=== PATIENT | female | born 1980 | race Caucasian/White ===

== ENCOUNTER 2017-01-13 21:30 | Emergency (ER) | payer SELFPAY ==
[~2017-01-13] VITALS: Ht 162.6 cm; Wt 67.3 kg
[~2017-01-13 21:30] MED LIST: ANAPROX DS550 MG PO; CEPHALEXIN500 M1 PO; IRON50 MG PO; LORTAB 5/500 501 TAB PO; MULTIPLE VITAMI1 TA2 PO; NAPROSYN500 MG PO; NO HOME MEDICATIONS; NORCO 325 MG-51 TAB PO; NORCO 325 MG-7.1 TAB PO; PERCOCET 325 MG1 TA2 PO; PROAIR HFA0.09 MG/AC IH; PROVENTIL0.09 MG/A1 IH; ULTRAM 50MG TAB50 MG PO; ZITHROMAX 250M250 MG PO; ZITHROMAX Z PA250 MG PO
[2017-01-13 21:31] VITALS: BP 125/40; TEMP 97.1
[2017-01-13] MEDS ORDERED: ULTRAM 50MG TAB50 MG PO (22:05)
[2017-01-13] MEDS ORDERED: NORCO 325 MG-51 TAB PO (22:05)
[2017-01-13 22:30] VITALS: PULSE 80
== END 2017-01-13 22:30 | disposition home or self-care (01) ==
LOC: COL.ER 21:30
DX: K08.89 Other specified disorders of teeth and supporting structures (principal); K03.81 Cracked tooth

== ENCOUNTER 2017-05-09 19:14 | Emergency (ER) | payer SELFPAY ==
[~2017-05-09] VITALS: Ht 162.6 cm; Wt 71.4 kg
[2017-05-09 19:18] VITALS: BP 137/65; TEMP 98.5
[2017-05-09 19:51] LABS: PH 5 (5-8); URINE APPEARANCE Clear; URINE BACTERIA None Seen /hpf; URINE BILIRUBIN Negative (NEGATIVE); URINE BLOOD Negative (NEGATIVE); URINE COLOR Yellow; URINE GLUCOSE Negative (NEGATIVE); URINE KETONE Negative (NEGATIVE); URINE RBC 0-2 /hpf; URINE UROBILINOGEN Negative (NEGATIVE); URINE WBC 0-2 /hpf
[2017-05-09 19:56] LABS: BASO # 0.1 (0.0-0.2); BASO % 0.8 % (0.0-2.0); EOS # 0.3 (0.0-0.7); EOS % 2.7 % (0-4.0); GRAN # 5.7 (1.4-6.5); HEMATOCRIT 42.3 % (37.0-47.0); HEMOGLOBIN 14.5 g/dl (12.5-16.0); LYMPH # 3.1 (1.2-3.4); LYMPH % 31.4 % (20.0-51.0); MEAN CELL VOLUME 88 fl (80.0-100.0); MEAN CORPUSCULAR HEMOGLOBIN 30 pg (27.0-31.0); MEAN CORPUSCULAR HGB CONC 34 g/dl (33.0-37.0); MEAN PLATELET VOLUME 10.8 fl (7.4-10.4); MONO # 0.7 (0.1-0.6); MONO % 6.9 % (1.7-9.3); PLATELET COUNT 275 K/mm3 (130-400); RED BLOOD COUNT 4.81 M/mm3 (4.10-5.30); REDCELL DISTRIBUTION WIDTH-CV 12.8 % (11.5-14.5); WHITE BLOOD COUNT 9.8 K/mm3 (4.8-10.8)
[2017-05-09 20:05] LABS: ADJUSTED CALCIUM 9.5 mg/dL (8.4-10.2); ALBUMIN 4.4 gm/dL (3.5-5.0); BILIRUBIN,TOTAL 0.4 mg/dL (0.0-1.0); CALCIUM 9.8 mg/dL (8.4-10.2); CREATININE, serum 0.61 mg/dL (0.52-1.25); POTASSIUM 3.9 mmol/L (3.4-5.0); TOTAL PROTEIN 7.3 gm/dL (6.4-8.2)
[2017-05-09] MEDS ORDERED: FLEXERIL 1010 MG/TAB PO (20:16)
[2017-05-09 20:30] VITALS: PULSE 94
== END 2017-05-09 20:31 | disposition home or self-care (01) ==
LOC: COL.ER 19:14
PROVIDERS: Emergency Medicine
DX: M54.5 Low back pain (principal); F17.200 Nicotine dependence, unspecified, uncomplicated; Z85.41 Personal history of malignant neoplasm of cervix uteri; Z87.59 Personal history of other complications of pregnancy, childbirth and the puerperium
CPT/HCPCS: J1885; J2405; J7030

== ENCOUNTER 2017-12-10 16:30 | Emergency (ER) | payer SELFPAY ==
[~2017-12-10] VITALS: Ht 162.6 cm; Wt 65.0 kg
[~2017-12-10 16:30] MED LIST changes: +FLEXERIL 1010 MG/TAB PO; +ILOTYCIN5 MG/GM OD; +MULTIVITAMIN FO1 CAP PO
[2017-12-10 18:46] VITALS: BP 118/72; PULSE 102; TEMP 98.5
== END 2017-12-10 19:10 | disposition home or self-care (01) ==
LOC: COL.ER 16:30
DX: J11.1 Influenza due to unidentified influenza virus with other respiratory manifestations (principal); J45.909 Unspecified asthma, uncomplicated; F31.9 Bipolar disorder, unspecified; F17.210 Nicotine dependence, cigarettes, uncomplicated

== ENCOUNTER 2018-03-07 13:57 | Emergency (ER) | payer SELFPAY ==
[~2018-03-07] VITALS: Ht 162.6 cm; Wt 62.7 kg
[2018-03-07 14:11] VITALS: BP 114/73; TEMP 98.1
[2018-03-07 16:53] VITALS: PULSE 85
== END 2018-03-07 16:53 | disposition home or self-care (01) ==
LOC: COL.ER 13:57
DX: Z32.02 Encounter for pregnancy test, result negative (principal); F17.210 Nicotine dependence, cigarettes, uncomplicated; Z98.51 Tubal ligation status; Z98.890 Other specified postprocedural states; Z88.6 Allergy status to analgesic agent

== ENCOUNTER 2018-08-08 21:56 | Emergency (ER) | payer SELFPAY ==
[~2018-08-08] VITALS: Ht 162.6 cm; Wt 65.0 kg
[2018-08-08 22:06] VITALS: BP 132/85
[2018-08-08] MEDS ORDERED: ZITHROMAX Z PA250 MG PO (22:25)
[2018-08-08] MEDS ORDERED: PREDNISONE20 MG PO (22:25)
[2018-08-08 22:36] VITALS: PULSE 102; TEMP 98.2
== END 2018-08-08 22:36 | disposition home or self-care (01) ==
LOC: COL.ER 21:56
DX: J20.9 Acute bronchitis, unspecified (principal); J45.909 Unspecified asthma, uncomplicated; F17.210 Nicotine dependence, cigarettes, uncomplicated; Z85.41 Personal history of malignant neoplasm of cervix uteri

== ENCOUNTER 2018-09-26 14:34 | Emergency (ER) | payer SELFPAY ==
[~2018-09-26] VITALS: Ht 162.6 cm; Wt 61.8 kg
[~2018-09-26 14:34] MED LIST changes: +PREDNISONE20 MG PO
[2018-09-26 14:39] VITALS: TEMP 98
[2018-09-26] MEDS ORDERED: BACTRIM DS 8001 TAB PO (15:24)
[2018-09-26 15:29] VITALS: BP 124/83; PULSE 97
== END 2018-09-26 15:29 | disposition home or self-care (01) ==
LOC: COL.ER 14:34
DX: H60.11 Cellulitis of right external ear (principal); F17.210 Nicotine dependence, cigarettes, uncomplicated

== ENCOUNTER 2019-03-24 17:43 | Emergency (ER) | payer SELFPAY ==
[~2019-03-24] VITALS: Ht 162.6 cm; Wt 65.0 kg
[~2019-03-24 17:43] MED LIST changes: +BACTRIM DS 8001 TAB PO
[2019-03-24] MEDS ORDERED: NATURAL IRON65 MG PO (18:03)
[2019-03-24] MEDS ORDERED: CEFTIN500 MG PO (18:16)
[2019-03-24 18:37] VITALS: BP 125/89; PULSE 89; TEMP 98
== END 2019-03-24 18:39 | disposition home or self-care (01) ==
LOC: COL.ER 17:43
DX: H65.91 Unspecified nonsuppurative otitis media, right ear (principal); J02.9 Acute pharyngitis, unspecified; Z98.51 Tubal ligation status

== ENCOUNTER 2019-04-08 19:56 | Emergency (ER) | payer SELFPAY ==
[~2019-04-08 19:56] MED LIST changes: +CEFTIN500 MG PO; +NATURAL IRON65 MG PO
[2019-04-08 20:03] VITALS: TEMP 98.4
[2019-04-08 20:28] VITALS: BP 110/68; PULSE 81
== END 2019-04-08 20:32 | disposition home or self-care (01) ==
LOC: COL.ER 19:56
DX: Z71.1 Person with feared health complaint in whom no diagnosis is made (principal)

== ENCOUNTER 2021-04-15 19:05 | Emergency (ER) | payer SELFPAY ==
[~2021-04-15] VITALS: Ht 162.6 cm; Wt 67.3 kg
[2021-04-15 20:26] LABS: BASO % 0.5 % (0.0-2.0); EOS % 1.1 % (0-4.0); GRAN # 2.2 (1.4-6.5); GRAN % 58.2 % (42.2-75.2); HEMATOCRIT 48.5 % (37.0-47.0); HEMOGLOBIN 16.4 g/dl (12.5-16.0); LYMPH # 1.2 (1.2-3.4); MEAN CELL VOLUME 87 fl (80.0-100.0); MEAN CORPUSCULAR HEMOGLOBIN 29 pg (27.0-31.0); MEAN CORPUSCULAR HGB CONC 34 g/dl (33.0-37.0); MEAN PLATELET VOLUME 11.4 fl (7.4-10.4); MONO # 0.3 (0.1-0.6); MONO % 7.9 % (1.7-9.3); PLATELET COUNT 187 K/mm3 (130-400); REDCELL DISTRIBUTION WIDTH-CV 13.1 % (11.5-14.5)
[2021-04-15 20:42] LABS: ALBUMIN 4.7 gm/dL (3.5-5.0); BILIRUBIN,TOTAL 1.3 mg/dL (0.0-1.0); CREATININE, serum 0.59 (0.52-1.25); POTASSIUM 5.1 mmol/L (3.4-5.0); TOTAL PROTEIN 8.7 gm/dL (6.4-8.2)
[2021-04-15] MEDS ORDERED: ZOFRAN ODT4 MG PO (20:58)
[2021-04-15 21:15] VITALS: BP 119/70; PULSE 79; TEMP 98.7
== END 2021-04-15 21:15 | disposition home or self-care (01) ==
LOC: COL.ER 19:05
PROVIDERS: Emergency Medicine
DX: U07.1 COVID-19 (principal); D72.819 Decreased white blood cell count, unspecified
CPT/HCPCS: J2405; J7120

== ENCOUNTER 2021-11-21 19:35 | Emergency (ER) | payer SELFPAY ==
[~2021-11-21] VITALS: Ht 162.6 cm; Wt 59.1 kg
[~2021-11-21 19:35] MED LIST changes: +ZOFRAN ODT4 MG PO
[2021-11-21 19:48] VITALS: TEMP 97.2
[2021-11-21 21:38] VITALS: BP 130/78; PULSE 76
== END 2021-11-21 21:38 | disposition home or self-care (01) ==
LOC: COL.ER 19:35
DX: U07.1 COVID-19 (principal); J12.82 Pneumonia due to coronavirus disease 2019; Z91.040 Latex allergy status; Z73.0 Burn-out

== ENCOUNTER 2023-01-02 11:27 | Emergency (ER) | payer SELFPAY ==
[~2023-01-02] VITALS: Ht 162.6 cm; Wt 75.5 kg
[2023-01-02 11:38] VITALS: TEMP 97.7
[2023-01-02 12:45] LABS: ALANINE AMINOTRANSFERASE 11 U/L (0-55); ALBUMIN 4.1 gm/dL (3.5-5.0); ALKALINE PHOSPHATASE 75 U/L (40-150); ANION GAP 10 mmol/L (7-16); AST,SGOT 14 U/L (5-34); BILIRUBIN,TOTAL 0.7 mg/dL (0.2-1.2); BLOOD UREA NITROGEN 11 mg/dL (7-19); CALCIUM 9.1 mg/dL (8.4-10.2); CARBON DIOXIDE 23 mmol/L (22-29); CHLORIDE 106 mmol/L (98-107); CREATININE, serum 0.78 mg/dL (0.57-1.11); GLUCOSE 94 mg/dL (70-99); LIPASE 26 U/L (8-78); POTASSIUM 3.9 mmol/L (3.5-4.5); SODIUM 139 mmol/L (136-145); TOTAL PROTEIN 7.6 gm/dL (6.2-8.1)
[2023-01-02 12:47] LABS: BASO # 0.1 K/mm3 (0.0-0.2); BASO % 0.5 % (0.0-2.0); EOS # 0.2 K/mm3 (0.0-0.7); EOS % 2.2 % (0.0-4.0); GRAN # 8.7 K/mm3 (1.4-6.5); GRAN % 81.2 % (42.2-75.2); HEMATOCRIT 41.2 % (37.0-47.0); HEMOGLOBIN 13.6 g/dl (12.5-16.0); LYMPH # 1.1 K/mm3 (1.2-3.4); LYMPH % 10.1 % (20.0-51.0); MEAN CELL VOLUME 87 fl (80.0-100.0); MEAN CORPUSCULAR HEMOGLOBIN 29 pg (27-31); MEAN CORPUSCULAR HGB CONC 33 g/dl (33.0-37.0); MEAN PLATELET VOLUME 10.5 fl (7.4-10.4); MONO # 0.6 K/mm3 (0.1-0.6); MONO % 5.5 % (1.7-9.3); PLATELET COUNT 339 K/mm3 (130-400); RED BLOOD COUNT 4.75 M/mm3 (4.10-5.30); REDCELL DISTRIBUTION WIDTH-CV 13.2 % (11.5-14.5)
[2023-01-02 13:03] LABS: TROPONIN-I < 0.010 ng/mL (0.00-0.033)
[2023-01-02 14:24] VITALS: BP 132/76; PULSE 83
[2023-01-02 15:05] LABS: COLLECTION METHOD CLEAN CATCH
[2023-01-02 15:24] LABS: MUCOUS Present (NOT PRESENT); URINE BACTERIA None Seen /hpf (NONE SEEN); URINE RBC None Seen /hpf (0-2)
[2023-01-02 15:40] LABS: URINE APPEARANCE Turbid (CLEAR/HAZY); URINE COLOR Yellow (YELLOW)
[2023-01-02 15:41] LABS: URINE BLOOD Negative (NEGATIVE); URINE GLUCOSE Negative (NEGATIVE); URINE KETONE Negative (NEGATIVE); URINE NITRATE Negative (NEGATIVE); URINE PROTEIN(semi-quant) Negative (NEGATIVE); URINE UROBILINOGEN 0.2 (NEGATIVE)
== END 2023-01-02 14:24 | disposition home or self-care (01) ==
LOC: COL.ER 11:27
PROVIDERS: Nurse Practitioner
DX: R07.89 Other chest pain (principal); Z87.891 Personal history of nicotine dependence; Z91.040 Latex allergy status; Z28.310 Unvaccinated for COVID-19